=== PATIENT | female | born 1995 | race Caucasian/White ===

== ENCOUNTER 2022-07-07 11:24 | Emergency (ER) | payer OTHER ==
[~2022-07-07] VITALS: Ht 167.6 cm; Wt 72.6 kg
[2022-07-07] MEDS ORDERED: DOXYCYCLINE HYCLATE 100 MG TABLET PO ONE (12:00)
[2022-07-07] MEDS ORDERED: CEFTRIAXONE 500 MG VIAL IM ONE (12:00)
[2022-07-07] MEDS ORDERED: CEFTRIAXONE 500 MG VIAL ONE (12:05)
[2022-07-07] MEDS ORDERED: DOXYCYCLINE HYCLATE 100 MG TABLET ONE (12:05)
[2022-07-07 12:07] LABS: *BILIRUBIN,URIN NEGATIVE (NEGATIVE); *BLOOD, URINE NEGATIVE (NEGATIVE); *CLARITY,URINE CLEAR (CLEAR); *COLOR,URINE YELLOW (YELLOW); *KETONES,URINE NEGATIVE (NEGATIVE); *UROBILINOGEN,URINE 0.2 E.U./dl (NORMAL); LEUKOCYTE ESTERASE ,URINE NEGATIVE (NEGATIVE); NITRITE, URINE NEGATIVE (NEGATIVE); UGLUCOSE NEGATIVE (NEGATIVE)
--- NOTE | 2022-07-07 12:10 | NUR ---
Pt seen by . Safety measures in place. Will continue to monitor.
[2022-07-07] MEDS ORDERED: CLON1TAB PO (12:12)
[2022-07-07] MEDS ORDERED: PARO37.512 PO (12:12)
[2022-07-07] MEDS ORDERED: OLAN5TAB3 PO (12:12)
[2022-07-07] MEDS ORDERED: LITH600C PO (12:12)
[2022-07-07 12:25] LABS: *URINE HCG, QUAL NEGATIVE (NEGATIVE)
[2022-07-07] MEDS ORDERED: DOXY100C5 PO (12:31)
[2022-07-07] MEDS ORDERED: METR500T PO (12:31)
[2022-07-07 12:47] VITALS: BP 120/74
--- NOTE | 2022-07-07 12:47 | NUR ---
Patient discharged to home in stable condition. Written and verbal after care instructions given. Patient verbalizes understanding of instructions. Stressed follow up or return to ER for worsening s/s.
[2022-07-09 07:07] LABS: *TRIC.VAG. NAA Negative (Negative)
[2022-07-09 15:07] LABS: *GC NAA Negative (Negative)
== END 2022-07-07 12:48 | disposition home or self-care (01) ==
LOC: ER 11:24
DX: N89.8 Other specified noninflammatory disorders of vagina (principal); Z79.2 Long term (current) use of antibiotics; Z79.899 Other long term (current) drug therapy
CPT/HCPCS: 99283; 81003; 84703; 96372; 87040; 87491; J0696; A4663

== ENCOUNTER 2022-09-22 15:22 | Emergency (ER) | payer OTHER ==
[~2022-09-22] VITALS: Ht 167.6 cm; Wt 72.6 kg
[~2022-09-22 15:22] MED LIST: CLON1TAB PO; DOXY100C5 PO; LITH600C PO; METR500T PO; OLAN5TAB3 PO; PARO37.512 PO
[2022-09-22 15:28] VITALS: O2SAT 99
[2022-09-22 16:34] LABS: *BLOOD, URINE NEGATIVE (NEGATIVE); *CLARITY,URINE CLEAR (CLEAR); *COLOR,URINE AMBER (YELLOW); *KETONES,URINE 1+ (NEGATIVE); *PROTEIN,URINE 2+ (NEGATIVE); LEUKOCYTE ESTERASE ,URINE NEGATIVE (NEGATIVE); NITRITE, URINE POSITIVE (NEGATIVE); UGLUCOSE TRACE (NEGATIVE)
[2022-09-22 16:37] LABS: *BILIRUBIN,URIN 1+ (NEGATIVE)
[2022-09-22 16:43] LABS: RBC,URINE 0-3 /HPF (0-3)
[2022-09-22 16:44] LABS: BACTERIA,URINE FEW /HPF (NONE SEEN); SQUAMOUS EPITHELIAL CELL,UR FEW /HPF (NONE SEEN)
[2022-09-22] MEDS ORDERED: HYDR-3972 PO (16:52)
[2022-09-22] MEDS ORDERED: DOXY100C5 PO (16:52)
[2022-09-22] MEDS ORDERED: HYDROCODONE/APAP 5-325MG TABLET PO ONE (17:00)
[2022-09-22] MEDS ORDERED: DOXYCYCLINE HYCLATE 100 MG TABLET PO ONE (17:00)
[2022-09-22] MEDS ORDERED: DOXYCYCLINE HYCLATE 100 MG TABLET ONE (17:02)
[2022-09-22] MEDS ORDERED: HYDROCODONE/APAP 5-325MG TABLET ONE (17:02)
[2022-09-22 17:19] LABS: *URINE HCG, QUAL NEGATIVE (NEGATIVE)
== END 2022-09-22 17:25 | disposition home or self-care (01) ==
LOC: ER 15:22
DX: N30.00 Acute cystitis without hematuria (principal); Z79.2 Long term (current) use of antibiotics; Z79.899 Other long term (current) drug therapy
CPT/HCPCS: 84703; A4663